=== PATIENT | female | born 1945 | race Caucasian/White ===

== ENCOUNTER → 2016-07-07 | Outpatient (CLI) | payer OTHER ==
[~2016-07-07] MED LIST: BENZ100C84 PO; CETI5TAB5 PO; ESCI10TA17 PO; ESCI1TAB6 PO; FLUT0.15 NAE; HYDR1CAP PO; LPR25 PO; LXP10 PO; METO100T44 PO; NXM/40 PO; PRLSR20 PO; PRVHFAIN INH; RANI150T3 PO; ROSU5TAB PO; SIMV10TA2 PO; ZOLP10TA PO
[2016-07-07 18:21] LABS: URINE APPEARANCE CLEAR (CLEAR); URINE BILIRUBIN NEG (NEG); URINE COLOR YELLOW; URINE EPITHELIAL CELL AUTO 20-30 /lpf (0-5); URINE NITRITE NEG (NEG); URINE PH 5.5 (4.5-7.5); URINE SPECIFIC GRAVITY 1.007 (1.000-1.030); UROBILINOGEN NEG (NEG)
[2016-07-07 18:23] LABS: MANUAL MICROSCOPIC REQUIRED? NO; REVIEW REQ? NO
== END | disposition home or self-care (01) ==
LOC: C.LABSPEC 17:31
PROVIDERS: ATTEND Obstetrics & Gynecology
DX: R32 Unspecified urinary incontinence (principal)

== ENCOUNTER 2016-09-23 07:40 | Day surgery (SDC) | payer OTHER ==
[2016-09-19 12:48] VITALS: BMI 29.0
--- NOTE | 2016-09-22 10:05 | HISTORY & PHYSICAL EXAMINATION ---
DATE OF ADMISSION: 09/23/2016 HISTORY OF PRESENT ILLNESS: A 71-year-old female presents today for preop evaluation of painful in the right foot. Severity of the condition is graded as 7 on a 10-point scale, gradually worsening over time. Pain is described as sore and tender. Onset of condition is unknown. She denies any recent exposure for the condition as gradual changes have happened over time with increasing pain over the joint and over the fourth and fifth digits. She notes the pain significantly increases when walking. Past treatment and tests have included x-rays, debridements, oral medication, rest and strapping insoles with little relief. Due to the nature and severity of the discomfort, she is requesting surgical intervention. PAST SURGICAL HISTORY: Laparoscopy, hip replacement 2013. PAST MEDICAL HISTORY: Hypertension, shingles, gastrointestinal problems, thyroid disorder, arthritic back problems, arthritis. MEDICATIONS: Celebrex, Lexapro, metoprolol, Nexium and Crestor. ALLERGIES: TO HAY FEVER, CATS AND DUST MITES. FAMILY HISTORY: Arthritis. SOCIAL HISTORY: The patient admits to alcohol use, drinking described as social. The patient admits to tobacco use, relates a smoking history of 5-pack years. REVIEW OF SYSTEMS: Unremarkable except chief complaint. PHYSICAL EXAMINATION: VITAL SIGNS: BP 140/90, temperature is 96.4, height 5 feet 4, weight 168 pounds, body mass index 29. HEAD AND FACE: Head is normocephalic and atraumatic without any gross head, face or neck masses. EYES: Conjunctival and pupillary reaction and accommodation normal. EARS, NOSE, MOUTH AND THROAT: Unremarkable. NECK: Neck is supple. Trachea is midline without any adenopathy or crepitance. CARDIOVASCULAR: Normal S1, S2, without murmur, gallops, rubs or clicks noted. Cardiovascular exam is normal. RESPIRATORY: Chest is symmetric. No scars are visible. No port or pacemaker. LUNGS: Clear to auscultation bilaterally, equal. GASTROINTESTINAL: Abdominal organs, bladder and kidneys show no abnormalities, masses, tenderness or rigidity. LYMPHATIC: No popliteal, inguinal, axillary or supraclavicular lymphadenopathy noted. LOWER EXTREMITY VASCULAR: DP palpable, PT palpable. Digital hair is present. DERMATOLOGIC: Inspection of metatarsophalangeal joint, right hallux shows bony prominence and red bursal projection. PIP joint of the right fourth and the distal right fourth interspace show callus formation. NEUROLOGICAL: Touch, pin, vibratory pain, proprioception sensations are normal. Reflexes normal. MUSCULOSKELETAL: Muscle tone is normal. Muscle strength is 5/5 in all groups tested. Inspection and palpation of bones, joints and muscles unremarkable. First metatarsophalangeal joint shows range of motion limited and painful on dorsiflexion, pain lateral right fourth PIP joint and distal medial right fifth DIP joint, proximal interphalangeal joint contracture of the right fourth and fifth digits noted. IMPRESSION: 1. Hallux limitus on the right. 2. Osteoarthritis right first metatarsophalangeal joint. 3. Hammertoes on the right fourth and fifth. 4. Metatarsalgia secondary to lesion on the right. 5. Difficulty walking. 6. Pain lower extremity. PLAN: Discussed mechanical and congenital etiology and possible conservative treatment consisting of extra depth shoes, accommodative padding, palliative debridement, steroid injections, nonsteroidals and orthotics. Due to the nature and severity of discomfort, she is requesting surgical correction. Surgeries to be performed: 1. Cheilectomy right first MTPJ. 2. Total implant arthroplasty right first MTPJ. 3. PIPJ arthroplasty right fourth and fifth with derotational skin plasty right fifth. 4. Exostectomy middle and distal phalanx right fifth. This will be performed under general anesthesia as an outpatient at the hospital. Procedure, risks and complications were fully reviewed with the patient. Consent form and foot diagram and illustration reviewed in all their entirety. All the patient's questions were answered. Complications were discussed in detail with the patient including pain, infection, swelling that may or may not be excessive, pins and needles feeling, numbness, metatarsalgia, excessive bleeding, delay or nonhealing of bone, delay or nonhealing of skin, enlarged scar, failure of the procedure, recurrence or worsening of condition which may or may not require further surgery, adverse reaction to anesthesia, allergic reaction to suture or other implant material, loss of toe, foot, or leg, flail toe, stiff toe, short toe, elevated toe, transfer lesion or callus, peripheral neurovascular complications such as phlebitis, damage to nerves or vascular structures, severe or chronic pain, chronic nerve pain or damage, general medical complications. The patient will be required to be in a surgery shoe for a minimum of 3-6 weeks and not return to dress shoes for 8-12 weeks depending on the postop edema. The patient is aware this is an elective type procedure and I recommend a second opinion. The patient and they understood. Consent form was signed with a copy of the foot diagram issued to the patient. Verbal and written postop instructions were given. The patient will return to the office for postop check or sooner if medically necessary. Instructed to keep dressing clean, dry and intact until seen at the office. At the time of the preoperative appointment, prescriptions for Percocet and Keflex were dispensed. MTDD
[~2016-09-23] VITALS: Ht 162.6 cm; Wt 76.8 kg
[~2016-09-23 07:40] MED LIST changes: +CEFAZOLIN 1000MG/55 ML D5W IV SCH; -ESCI10TA17 PO; -FLUT0.15 NAE; -HYDR1CAP PO; +LACTATED RINGER'S 1000ML 1,000 ML IV SCH; -LPR25 PO; -METO100T44 PO; +METO1TAB69 PO; -PRLSR20 PO; -RANI150T3 PO; -SIMV10TA2 PO; +SODIUM CHLORIDE 0.9% 1000ML 1,000 ML IV SCH; -ZOLP10TA PO
[2016-09-23] MEDS ORDERED: BUPIVACAINE 0.5 % 5 MG/1 ML PF 10ML VIAL ONE (07:53)
[2016-09-23] MEDS ORDERED: BUPIVACAINE 0.25% 30 ML VIAL ONE (07:54)
[2016-09-23] MEDS ORDERED: EpHEDrine SULFATE INJ 50 MG/ML AMP IV PRN (08:00)
[2016-09-23] MEDS ORDERED: FENTANYL CITRATE INJ 50 MCG/1 ML 2 ML VIAL IV PRN (08:00)
[2016-09-23] MEDS ORDERED: ATROPINE SULFATE 0.1 MG/ML 5ML SYR IV PRN (08:00)
[2016-09-23] MEDS ORDERED: ONDANSETRON INJ 2 MG/ML 2 ML VIAL IV PRN (08:00)
[2016-09-23] MEDS ORDERED: HYDROmorphone INJ 1 MG/ML SYR IV PRN (08:00)
[2016-09-23 08:04] VITALS: BP 154/92; PULSE 54; TEMP 36.6; O2SAT 95; Ht 162.6 cm; Wt 76.8 kg
[2016-09-23] MEDS ORDERED: CEFAZOLIN SOD 1000MG/55 ML D5W IV ONE (08:19)
[2016-09-23] MEDS ORDERED: LIDOCAINE HCL 2% 2 ML VIAL (20MG/ML) ONE (09:08)
[2016-09-23] MEDS ORDERED: ONDANSETRON INJ 2 MG/ML 2 ML VIAL ONE (09:08)
[2016-09-23] MEDS ORDERED: MIDAZOLAM HCL 1 MG/ML 2ML VIAL ONE (09:08)
[2016-09-23] MEDS ORDERED: DEXAMETHASONE SOD INJ 4 MG/ML VIAL ONE (09:08)
[2016-09-23] MEDS ORDERED: FENTANYL CITRATE INJ 50 MCG/1 ML 2 ML VIAL ONE (09:08)
[2016-09-23] MEDS ORDERED: PROPOFOL IV EMULSION 10 MG/ML 20 ML VIAL IV ONE (09:08)
[2016-09-23 10:08] LABS: INR 0.9 (0.9-1.1); PARTIAL THROMBOPLASTIN RATIO 1.1
--- NOTE | 2016-09-23 10:37 | History & Physical Bridge Note ---
H&P Re-Evaluation Bridge Note: I have examined the patient, reviewed the History & Physical and in the interval since the performance of the History & Physical I have noted the following changes of clinical significance: No changes noted
[2016-09-23] MEDS ORDERED: BUPIVACAINE 0.5 % 5 MG/1 ML MPF 30ML VIAL ONE (10:38)
[2016-09-23] MEDS ORDERED: SODIUM CHLORIDE 0.9% 1000ML 1,000 ML IV SCH ×3 (10:39)
--- NOTE | 2016-09-23 10:39 | Discharge Instructions ---
Discharge Instructions Date of Service Sep 23, 2016. Visit Reason for Visit: Hammer Toes, Hallux Limitus Discharge Discharge Diagnosis / Problem: same as diagnosis Discharge Goals Goal(s): Decrease discomfort Activity Recommendations Activity Limitations: as noted below Medications: * Resume previous medications unless instructed by your surgeon. * Take your medications as prescribed. Call our office ([phone]) at any time, if you experience severe pain that does not subside shortly after taking your pain medication. Activity: * Do not put any standing weight on your operated foot/ankle. Use the crutches or walker as instructed. Special Care: * Keep your bandage clean and dry. Do not remove your bandage unless otherwise instructed. A small amount of blood may appear on the bandage over the surgical site. Call our office ([phone]) if you bandage becomes blood-soaked or wet. * Elevate your operated foot/ankle on pillows, above the level of your heart, as often as possible during the first 2-3 days following surgery. Keep your knee flexed slightly with a pillow under your knee when you elevate your foot/ankle. * Apply a ice bag to your foot/ankle over the operative site for 20-30 minutes out of each hour while you are awake. Do not allow the ice bag to directly contact bare skin. * Avoid bumping or handling any pins visible in your toes. If any pin feels or appears loose, call the office ([phone]). * Take your oral temperature in the morning and at bedtime. Call our office ([phone]) if your temperature rises above 101 degrees Fahrenheit. Call your surgeon's office at ([phone]) for any problems or concerns such as excessive bleeding and/or pain unrelieved by your prescribed pain medications. If you have any questions, please do not hesitate to ask them. Avoid all tobacco products. If you need help to stop smoking, call [place]'s FREE QUITLINE at . This is a free call. Follow-up: Follow-up with Dr. Tse Anesthesia . Post Anesthesia Instructions: If you have had General Anesthesia or IV Sedation: * Do not drive today. * Resume driving when surgeon permits. * Do not make important decisions or sign legal documents today. * Call surgeon for: 1. Temperature elevations greater than 101 degrees F. 2. Uncontrollable pain. 3. Excessive bleeding. 4. Persistent nausea and vomiting. 5. Medication intolerance (nausea, vomiting or rash). * For nausea and vomiting use only clear liquids such as: tea, soda, bouillon until nausea subsides, then gradually increase diet as tolerated. * If you have any concerns or questions, call your surgeon's office. If physician is unavailable and it is an emergency, call 911 or go to the nearest emergency room. . Diet Recommendations Recommended Home Diet: resume previous diet Pending Studies Studies pending at discharge: no Medical Emergencies . Who to Call and When: Medical Emergencies: If at any time you feel your situation is an emergency, please call 911 immediately. . Non-Emergent Contact Non-Emergency issues call your: Primary Care Provider . . "Provider Documentation" section prepared by Lidia Alberto. .
[2016-09-23] MEDS ORDERED: EpHEDrine SULFATE 50MG/5ML SYR ONE (11:14)
--- NOTE | 2016-09-23 12:57 | DIAGNOSTIC IMAGING REPORT ---
RIGHT FOOT CLINICAL HISTORY: Intraoperative right foot study. FLUOROSCOPY TIME: 37 seconds. FINDINGS: 3 fluoroscopic spot images of the right forefoot. There is an arthroplasty at the first MTP joint. There are pins traversing the fourth and fifth toes. IMPRESSION: Fluoroscopy provided for postoperative changes within the right foot. Electronically signed by: Reyes Goodrich M.D. 09/23/2016 12:55 PM Dictated Date/Time: 09/23/2016 12:54 PM
--- NOTE | 2016-09-23 13:37 | Anesthesiology Progress Note ---
Anesthesia Post Op Note Date & Time Sep 23, 2016 at 13:37 Vital Signs Pain Intensity: 0 Vital Signs Past 12 Hours Date Time Temp Pulse Resp B/P (MAP) Pulse Ox O2 Delivery O2 Flow Rate FiO2 09/23/16 13:25 74 18 151/78 100 Oxymask 10 09/23/16 13:15 73 18 163/94 94 Oxymask 10 09/23/16 13:05 36.6 84 18 164/90 94 Oxymask 10 09/23/16 08:04 36.6 54 20 154/92 (112) 95 Room Air Notes Mental Status: alert / awake / arousable, participated in evaluation Pt Amnestic to Procedure: Yes Nausea / Vomiting: adequately controlled Pain: adequately controlled Airway Patency, RR, SpO2: stable & adequate BP & HR: stable & adequate Hydration State: stable & adequate Anesthetic Complications: no major complications apparent
--- NOTE | 2016-09-23 13:38 | DIAGNOSTIC IMAGING REPORT ---
RIGHT FOOT MIN 3 VIEWS ROUTINE CLINICAL HISTORY: postop Right postoperative evaluation COMPARISON: None. DISCUSSION: Evidence for osteotomies involving the distal aspects of the proximal phalanges of the fourth and fifth toe. Linear pin fixation of the phalanges through the distal aspect of the fourth metatarsal. Apparent pre-existing great toe metatarsal phalangeal joint arthroplasty involving the great toe. Moderate heel spur is present. There are expected postoperative soft tissue changes. Expected soft tissue postoperative change IMPRESSION: 1. Arthroplasties involving the distal aspects of the proximal phalanges of the fourth and fifth toes. 2. Linear pin fixation of the phalanges and distal aspect of the fourth metatarsal 3. Pre-existing joint arthroplasty first metatarsophalangeal joint The above report was generated using voice recognition software. It may contain grammatical, syntax or spelling errors. Electronically signed by: Sai Rios M.D. 09/23/2016 1:36 PM Dictated Date/Time: 09/23/2016 1:34 PM
[2016-09-23 13:50] VITALS: BP 141/64; PULSE 70; TEMP 36.5; O2SAT 92
--- NOTE | 2016-09-23 13:54 | OPERATIVE REPORT ---
DATE OF OPERATION: 09/23/2016 PREOPERATIVE DIAGNOSES: 1. Hallux limitus, right. 2. Osteoarthritis, right first metatarsophalangeal joint. 3. Hammertoes right fourth and fifth. 4. Metatarsalgia. 5. Pain. POSTOPERATIVE DIAGNOSES: Same. PROCEDURES: 1. Cheilectomy with total implant arthroplasty, right first MTPJ. 2. PIPJ arthroplasty, right fourth and fifth. 3. Exostectomy, distal medial phalanx, right fifth. SURGEON: Dr. Tse. ANESTHESIA: General. I attest to the content of the Intraoperative Record and any orders documented therein. Any exception s are noted below.
--- NOTE | 2016-09-23 14:02 | OPERATIVE REPORT ---
DATE OF OPERATION: 09/23/2016 The head of the proximal phalanx was removed from the 4th and 5th digits. Prior to this extensor tendon was transected at the level of the proximal interphalangeal joint. Dissection was carried down to the level of the metatarsal phalangeal joint. Sharp dissection released the metatarsal phalangeal joint with capsulotomy performed of the right 4th and 5th metatarsal phalangeal joint releasing all soft tissues. A 0.045 K-wire was retrograded through the toe back across the metatarsal phalangeal joint in slight plantarflexion. Upon closure it should be noted that the right 5th digital pin was removed as the digit failed to sam up. The pin in the 4th digit remained. The wounds were copiously lavaged with normal saline. Deep structure was closed using 2-0 Vicryl in simple interrupted fashion. Superficial deep structures were closed using 3-0 Vicryl in box stitch technique. Skin margins were closed using 4-0 nylon in running interlocking fashion and simple interrupted fashion over the 4th and 5th digits. There was delayed uptake noted to the right 5th digit. K-wires were removed and upon its removal immediate capillary refill was noted to the 5th digit. A dry sterile compressive dressing consisting of adaptic, 4x4, Phillip and Vitor was applied. The patient was transported to the recovery room with vital signs stable and neurovascular status intact. Prior to transport the final positioning of the implant, K-wire on the 4th and 5th was checked using the fluoroscan. I attest to the content of the Intraoperative Record and any orders documented therein. Any exception s are noted below.
[2016-09-23 14:20] VITALS: BP 141/64; PULSE 78; O2SAT 94
[2016-09-23 14:50] VITALS: BP 141/64; PULSE 77; TEMP 36.4; O2SAT 95
--- NOTE | 2016-09-24 00:08 | OPERATIVE REPORT ---
DATE OF OPERATION: 09/23/2016 CONTINUATION Surgeon: Lidia Tse DPM Preop DX: Hallux Limitus Right Osteoarthritis Right 1st MTPJ Hammertoes Right 4th Right 5th Metatarsalgia Pain Postop Dx: Same Procedure: Capsulotomy with MTPJ Release R 4th & 5th Cheilectomy with total implant arthroplasty Right 1st MTPJ Arthroplasty/PIPJ Right 4th & 5th Exostectomy medial distal phalanx Right 5th Anesthesia: General with regional field block by anesthesiologist Hemostasis: Pneumatic ankle tourniquet 250mmHG for 80 minutes EBL: 73cc MATERIALS: 2-0 and 3-0 Vicryl. 4-0 nylon. K-wire 0.045. Arthroforce toe implant 1.5 x 3.5 with a 1.5 mm poly. FINDINGS: Cartilage down to subchondral bone, 75% of the metatarsal and 20% of the proximal phalanx. COMPLICATIONS: None. The patient tolerated the procedure and anesthesia well without complications, transported to the recovery room with vital signs stable and neurovascular status intact. DESCRIPTION OF PROCEDURE: The patient was brought to the OR and placed on the OR table in supine position. Upon completion of regional field block performed in the preoperative holding area, the foot was scrubbed, prepped and draped in the usual aseptic fashion on the right, well padded. Ankle tourniquet was applied to the right lower extremity. Extremity was scrubbed, prepped and draped in the usual aseptic fashion. Attention was directed to the right first MTPJ where incision was made just medial to tendon extensor hallucis longus. Care was taken to preserve all neurovascular structures. Dissection was carried down to the level of capsular structures. A guidewire was placed in the normal axis so that articular surface centered to the defect. It should be noted that approximately 75% of cartilage surface was derotated down to subchondral bone. This guidepin was placed and checked under fluoro tapered post. Trial implant was placed and remaining bone was measured around to find the ideal implant. Surface reamer was then performed both dorsally and trial implant was placed again and cleaning up bone around the trial implant. At this time, attention was then directed to the proximal phalanx component where a guidewire was placed in the proximal phalanx in the central aspect, this was checked under fluoro. This area was drilled and reamed and implants placed both in the proximal phalanx and metatarsal. The wound was copiously lavaged prior to placement after removal of the trials and final placement. It should be that the trial based on range of motion of the metatarsal component was removed and an additional decompression of the head was performed to increase motion. An additional 2 mm of joint space was decompressed to allow to perform functional motion. The wound was copiously lavaged with normal saline. Trial implants were removed and the final implant was placed. FluoroScan was used to check position. 1.5 mm poly was then snapped into place. The wound was copiously lavaged with normal saline. Attention was then directed to the fourth and fifth digits where a curvilinear incision was made across the metatarsophalangeal joint extending out onto the fourth digit. A diagonal incision was made over the fifth from distal medial to proximal lateral. This was to slightly derotate the toe and also gain access to the distal phalanx. A lia was used to remove a portion of the distal phalanx medially. DICTATION ENDS HERE I attest to the content of the Intraoperative Record and any orders documented therein. Any exceptions are noted below. [facility]
== END 2016-09-23 14:50 | disposition home or self-care (01) ==
LOC: C.ACU 07:40
PROVIDERS: ATTEND Podiatrist Foot & Ankle Surgery
DX: M20.5X1 Other deformities of toe(s) (acquired), right foot (principal); M19.071 Primary osteoarthritis, right ankle and foot; M20.41 Other hammer toe(s) (acquired), right foot; I10 Essential (primary) hypertension

== ENCOUNTER → 2016-11-26 | Outpatient (CLI) | payer OTHER ==
[~2016-11-26] MED LIST changes: -CEFAZOLIN 1000MG/55 ML D5W IV SCH; -LACTATED RINGER'S 1000ML 1,000 ML IV SCH; -SODIUM CHLORIDE 0.9% 1000ML 1,000 ML IV SCH
== END | disposition home or self-care (01) ==
LOC: C.LAB1850 12:52
PROVIDERS: ATTEND Family Medicine
DX: K21.9 Gastro-esophageal reflux disease without esophagitis (principal)

== ENCOUNTER → 2017-01-01 | Outpatient (CLI) | payer OTHER ==
[~2017-01-01] MED LIST changes: +METO100T44 PO; -METO1TAB69 PO
--- NOTE | 2017-01-01 14:54 | MAMMOGRAPHY REPORT ---
BILATERAL DIGITAL SCREENING MAMMOGRAM WITH CAD: 01/01/2017 CLINICAL HISTORY: Routine screening. Patient has no complaints. TECHNIQUE: Current study was also evaluated with a Computer Aided Detection (CAD) system. Bilateral CC and MLO views were obtained. COMPARISON: Comparison is made to exams dated: 01/01/2016 mammogram, 11/01/2013 ultrasound, 11/01/2013 ma mmogram, 11/17/2012 aspiration, 11/05/2012 ultrasound, and 11/05/2012 mammogram - [facility]. BREAST COMPOSITION: There are scattered areas of fibroglandular density in both breasts. FINDINGS: No suspicious masses, calcifications, or areas of architectural distortion are noted in ei ther breast. There has been no significant interval change compared to prior exams. There are stable postsurgical changes from bilateral reduction mammoplasty. IMPRESSION: ACR BI-RADS CATEGORY 2: BENIGN There is no mammographic evidence of malignancy. A 1 year screening mammogram is recommended. The pa tient will receive written notification of the results. Approximately 10% of breast cancers are not detected with mammography. A negative mammographic report should not delay biopsy if a clinically suggestive mass is present. Virginia Kay M.D. /:01/01/2017 12:29:08 Docking Pilot: Rosey MEJIA(Haim)(Xiom[place]), [facility] letter sent: Normal 1/2 BI-RADS Code: ACR BI-RADS Category 2: Benign
== END ==
LOC: C.MAMM 10:16
PROVIDERS: ATTEND Family Medicine
DX: Z12.31 Encounter for screening mammogram for malignant neoplasm of breast (principal)

== ENCOUNTER → 2017-01-12 | Outpatient (CLI) | payer OTHER | END | disposition home or self-care (01) | LOC: C.PAPS 16:38 | PROVIDERS: ATTEND Obstetrics & Gynecology | DX: Z12.4 Encounter for screening for malignant neoplasm of cervix (principal) ==

== ENCOUNTER → 2017-05-04 | Day surgery (SDC) | payer OTHER ==
[2017-04-17 08:54] VITALS: BMI 28.0
[~2017-05-04] VITALS: Ht 160 cm; Wt 71.8 kg
[~2017-05-04] MED LIST changes: +ATROPINE SULFATE 0.1 MG/ML 5ML SYR IV PRN; -BENZ100C84 PO; +CALC1CHW47 PO; -CETI5TAB5 PO; -ESCI1TAB6 PO; +EpHEDrine SULFATE INJ 50 MG/ML AMP IV PRN; +FLUT50SP45 NAE; +HYZ/50125 PO; +LEVO5TAB7 PO; +LIDOCAINE HCL 2% 2 ML VIAL (20MG/ML) ONE; -LXP10 PO; +MAGN250T3 PO; +MULT-1018 PO; +MULT1CHW63 PEG; +PROPOFOL IV EMULSION 10 MG/ML 20 ML VIAL IV ONE; +RANI150T85 PO; +SODIUM CHLORIDE 0.9% 500ML 500 ML IV ONE; +SPIR1TAB PO; +ZOLP10TA PO
--- NOTE | 2017-05-04 11:30 | Endo History and Physical ---
History & Physical Date of Service: May 04, 2017. Chief Complaint: History of colon polyps Referring Physician: Dr. Valencia History of Present Illness 71 yo CF who presents for colonoscopy secondary to history of colon polyps. Past Surgical History Hx Cardiac Surgery: No Hx Internal Defibrillator: No Hx Pacemaker: No Hx Abdominal Surgery: Yes (TUBAL LIGATION, LAPAROTOMY) Hx of Implantable Prosthesis: No Hx Post-Op Nausea and Vomiting: No Hx Cancer Surgery: No Hx Thoracic Surgery: No Hx Orthopedic: Yes (RT JONATHAN, CHIELECTOMY RT 1ST TOE, RT/LEFT CTR) Hx Urinary Tract Surgery: No Family History None Social History Smoking Status: Former Smoker Hx Substance Use: No Hx Alcohol Use: Yes (OCCASIONALLY) Allergies Coded Allergies: Grass (Verified Allergy, Unknown, ENVIRONMENTAL ALLERGY = CONGESTION, 05/04) Lisinopril (Verified Adverse Reaction, Severe, COUGH, 05/04/17) Current Medications Reported Home Medications Medications Dose Route/Sig Max Daily Dose Days Date Category Spirulina 500 Mg Tab 1 Tab PO QAM 04/17/17 Reported Hair Skin and Nails Formu (Multiple Vitamins W/ Minerals) 1 Tab Tab 1 Tab PO QAM 04/17/17 Reported Calcium Gummies (Calcium & Phosphorus W/ Vitami) 1 Chw Chw 2 Dose PO QAM 04/17/17 Reported Airborne Immune System (Multiple Vitamins W/ Minerals) 1 Chw Chw 1 Dose PEG QAM 04/17/17 Reported Magnesium 250 mg (Magnesium) 1 Tab Tab 1 Tab PO QAM 04/17/17 Reported Allergy Nasal [place] 24 Ho (Fluticasone Propionate (Nasal)) 50 Mcg/Act Spr 1 [place] SAVAGE DAILY PRN 04/17/17 Reported Ambien (Zolpidem Tartrate) 10 Mg Tab 10 Mg PO HS PRN 04/17/17 Reported Zantac (Ranitidine HCl) 150 Mg Tab 150 Mg PO DAILY PRN 04/17/17 Reported Hyzaar 12.5MG/50MG (HCTZ/Losartan Potassium) Tab 1 Tab PO HS 04/17/17 Reported Toprol-Xl (Metoprolol Succinate) 100 Mg Tabcr 50 Mg PO HS 04/17/17 Reported Nexium (Esomeprazole Magnesium) 40 Mg Capcr 40 Mg PO BID PRN 04/17/17 Reported Xyzal Allergy 24Hr (Levocetirizine Dihydrochloride) 5 Mg Tab 1 Tab PO HS 04/17/17 Reported Crestor (Rosuvastatin Calcium) 5 Mg Tab 10 Mg PO QPM 09/19/16 Reported Ventolin Hfa (Albuterol) 60 Puffs/5400 Mcg Aers 1 Puff INH Q6H PRN 09/18/16 Reported Vital Signs Weight (Kilograms): 71.82 Height (Feet): 5 Height (Inches): 3 Physical Exam General Appearance: WD/WN, no apparent distress Respiratory/Chest: Auscultation: breath sounds normal Cardiovascular: Heart Auscultation: RRR Abdomen: Bowel Sounds: normal Inspection & Palpation: soft, non-distended, no tenderness, guarding & rebound Assessment and Plan Assessment: 71 yo CF who presents for colonoscopy secondary to history of colon polyps. Plan: Proceed with colonoscopy.
[2017-05-04 11:31] VITALS: Ht 160 cm; Wt 71.8 kg
--- NOTE | 2017-05-04 12:50 | Discharge Instructions ---
Endoscopy Patient Instructions Date / Procedure(s) Performed May 04, 2017. Colonoscopy Allergy Information Coded Allergies: Grass (Verified Allergy, Unknown, ENVIRONMENTAL ALLERGY = CONGESTION, 05/04) Lisinopril (Verified Adverse Reaction, Severe, COUGH, 05/04/17) Discharge Date / Findings May 04, 2017. Colon polyp Diverticulosis Medication Instructions Stopped Medication(s): ALL MEDICATION OK to resume all medications today as prescribed Reported Home Medications Medications Dose Route/Sig Max Daily Dose Days Date Category Spirulina 500 Mg Tab 1 Tab PO QAM 04/17/17 Reported Hair Skin and Nails Formu (Multiple Vitamins W/ Minerals) 1 Tab Tab 1 Tab PO QAM 04/17/17 Reported Calcium Gummies (Calcium & Phosphorus W/ Vitami) 1 Chw Chw 2 Dose PO QAM 04/17/17 Reported Airborne Immune System (Multiple Vitamins W/ Minerals) 1 Chw Chw 1 Dose PEG QAM 04/17/17 Reported Magnesium 250 mg (Magnesium) 1 Tab Tab 1 Tab PO QAM 04/17/17 Reported Allergy Nasal [place] 24 Ho (Fluticasone Propionate (Nasal)) 50 Mcg/Act Spr 1 [place] SAVAGE DAILY PRN 04/17/17 Reported Ambien (Zolpidem Tartrate) 10 Mg Tab 10 Mg PO HS PRN 04/17/17 Reported Zantac (Ranitidine HCl) 150 Mg Tab 150 Mg PO DAILY PRN 04/17/17 Reported Hyzaar 12.5MG/50MG (HCTZ/Losartan Potassium) Tab 1 Tab PO HS 04/17/17 Reported Toprol-Xl (Metoprolol Succinate) 100 Mg Tabcr 50 Mg PO HS 04/17/17 Reported Nexium (Esomeprazole Magnesium) 40 Mg Capcr 40 Mg PO BID PRN 04/17/17 Reported Xyzal Allergy 24Hr (Levocetirizine Dihydrochloride) 5 Mg Tab 1 Tab PO HS 04/17/17 Reported Crestor (Rosuvastatin Calcium) 5 Mg Tab 10 Mg PO QPM 09/19/16 Reported Ventolin Hfa (Albuterol) 60 Puffs/5400 Mcg Aers 1 Puff INH Q6H PRN 09/18/16 Reported Current Inpatient Medications Medications (Trade) Dose Ordered Sig/Evy Route Start Time Stop Time Status Last Admin Dose Admin Sodium Chloride 500 ml @ 15 mls/hr Q24H ONCE IV 05/03/17 22:48 05/04/17 22:47 Ephedrine Sulfate (EpHEDrine SULFATE INJ) 5 mg Q5M PRN IV 05/04/17 12:15 05/05/17 12:14 Atropine Sulfate (Atropine Sulfate 0.1mg/ml Inj) 0.5 mg Q1M PRN IV 05/04/17 12:15 05/05/17 12:14 Provider Instructions Activity Restrictions - No exercising or heavy lifting for 24 hours. - Do not drink alcohol the day of the procedure. - Do not drive a car or operate machinery until the day after the procedure. - Do not make any important decisions or sign important papers in 24 hours after the procedure. Following Day: - Return to full activity which may include returning to work/school. Diet Start your diet with liquids and light foods (jello, soup, juice, toast). Then eat your usual diet if not nauseated. Treatment For Common After Affects For mild abdominal pain, bloating, or excessive gas: - Rest - Eat lightly - Lie on right side Follow-Up Information Follow-up with [facility] as scheduled Anesthesia Information What You Should Know You have had a procedure that required some medicine to reduce anxiety and discomfort. This treatment is called moderate sedation. After receiving the treatment, you may be sleepy, but you will be able to breathe on your own. The effects of the treatment may last for several hours. Follow these instructions along with Activity/Diet recommendations noted above: * Do NOT do anything where dizziness or clumsiness would be dangerous. * Rest quietly at home today, then you can be up and about tomorrow. * Have a responsible person stay with you the rest of today. * You may have had an I.V. today. If so, you may take the dressing off later today. Recommendations Call your doctor if: * Trouble breathing * Continuous vomiting for more than 24 hours * Temperature above 101 degrees * Severe abdominal pain or bloating * Pain not relieved by pain medicine ordered * There is increased drainage or redness from any incision * A large amount of rectal bleeding greater than 2-3 tablespoons. (If you had a polyp/s removed or have hemorrhoids, a small amount of blood - from the rectum is to be expected.) * You have any unanswered questions or concerns. IN THE EVENT OF A SERIOUS EMERGENCY, GO TO THE NEAREST EMERGENCY ROOM Your discharge instructions were prepared by provider Manuel Fong. Patient Instructions Signature Page Gely Francis Patient (or Guardian) Signature/Date: I have read and understand the instructions given to me by my caregivers. Caregiver/RN/Doctor Signature/Date: The above-named patient and/or guardian has received patient instructions on this date. + Original Patient Signature Page (only) stays with chart. Please make copy for patient.
--- NOTE | 2017-05-04 12:55 | GI REPORT ---
Procedure Date: 05/04/2017 12:12 PM Procedure: Colonoscopy Indications: High risk colon cancer surveillance: Personal history of colonic polyps Medicines: Monitored Anesthesia Care Complications: No immediate complications. Estimated Blood Loss: Estimated blood loss: none. Procedure: Pre-Anesthesia Assessment: - Prior to the procedure, a History and Physical was performed, and patient medications and allergies were reviewed. The patient's tolerance of previous anesthesia was also reviewed. The risks and benefits of the procedure and the sedation options and risks were discussed with the patient. All questions were answered, and informed consent was obtained. Prior Anticoagulants: The patient has taken no previous anticoagulant or antiplatelet agents. ASA Grade Assessment: III - A patient with severe systemic disease. After reviewing the risks and benefits, the patient was deemed in satisfactory condition to undergo the procedure. After I obtained informed consent, the scope was passed under direct vision. Throughout the procedure, the patient's blood pressure, pulse, and oxygen saturations were monitored continuously. The scope was introduced through the anus and advanced to the cecum, identified by appendiceal orifice and ileocecal valve. The colonoscopy was performed without difficulty. The patient tolerated the procedure well. The quality of the bowel preparation was good. The ileocecal valve, appendiceal orifice, and rectum were photographed. Findings: The perianal and digital rectal examinations were normal. A 4 mm polyp was found in the descending colon. The polyp was sessile. The polyp was removed with a hot snare. Resection and retrieval were complete. Multiple small-mouthed diverticula were found in the sigmoid colon. Impression: - One 4 mm polyp in the descending colon, removed with a hot snare. Resected and retrieved. - Diverticulosis in the sigmoid colon. Recommendation: - Resume previous diet. - Continue present medications. - Repeat colonoscopy for surveillance based on pathology results. - Return to primary care physician as previously scheduled. Manuel Fong DO 05/04/2017 12:55:02 PM This report has been signed electronically. Note Initiated On: 05/04/2017 12:12 PM I attest to the content of the Intraoperative Record and orders documented therein, exceptions below
--- NOTE | 2017-05-04 13:09 | Anesthesiology Progress Note ---
Anesthesia Post Op Note Date & Time May 04, 2017 at 13:09 Vital Signs Pain Intensity: 0 Vital Signs Past 12 Hours Date Time Temp Pulse Resp B/P (MAP) Pulse Ox O2 Delivery O2 Flow Rate FiO2 05/04/17 12:50 36.0 63 16 94/52 (66) 97 Room Air 05/04/17 11:37 36.6 67 18 120/58 (78) 97 Room Air Notes Mental Status: alert / awake / arousable, participated in evaluation Pt Amnestic to Procedure: Yes Nausea / Vomiting: adequately controlled Pain: adequately controlled Airway Patency, RR, SpO2: stable & adequate BP & HR: stable & adequate Hydration State: stable & adequate Anesthetic Complications: no major complications apparent
[2017-05-04 13:20] VITALS: BP 133/85; PULSE 60; O2SAT 97
== END | disposition home or self-care (01) ==
LOC: C.GI 11:12
PROVIDERS: ATTEND Internal Medicine
DX: Z12.11 Encounter for screening for malignant neoplasm of colon (principal); D12.4 Benign neoplasm of descending colon; K57.30 Diverticulosis of large intestine without perforation or abscess without bleeding; K21.9 Gastro-esophageal reflux disease without esophagitis; J45.909 Unspecified asthma, uncomplicated; Z86.010 Personal history of colon polyps; Z96.641 Presence of right artificial hip joint; Z87.891 Personal history of nicotine dependence

== ENCOUNTER 2025-01-10 05:23 | Observation (INO) ==
--- NOTE | 2024-12-14 11:52 | PAT Medication Instructions ---
Medication Instructions Date of Service December 14, 2024 Home Medications Medication Instructions Recorded albuterol sulfate 90 mcg/actuation 2 puff inhalation Q6H PRN sob #18 02/29/20 aerosol inhaler grams fluticasone propionate 50 2 spray intranasal DAILY #16 grams 02/29/20 mcg/actuation nasal spray,suspension conjugated estrogens 0.625 mg/gram 0.625 mg vaginal 2XWK . #30 grams 06/26/23 vaginal cream (Premarin) rosuvastatin 20 mg tablet 20 mg PO Q2D #90 tabs 05/17/24 losartan 100 1 tab PO QAM #90 tabs 08/04/24 mg-hydrochlorothiazide 25 mg tablet rosuvastatin 10 mg tablet (Crestor) 10 mg PO Q2D #45 tabs 08/09/24 amoxicillin 500 mg tablet 2,000 mg (4 x 500 mg) PO ONCE 10/13/24 pre-dental #4 tabs Medication List: acyclovir 5 % topical cream 1 appln topical 5XD albuterol sulfate 90 mcg/actuation aerosol inhaler 2 puff inhalation Q6H PRN sob fluticasone propionate 50 mcg/actuation nasal spray,suspension 2 spray intranasal DAILY zolpidem 10 mg tablet 5 mg PO HS PRN insomnia mirabegron 25 mg tablet,extended release 24 hr (Myrbetriq) 25 mg PO QAM conjugated estrogens 0.625 mg/gram vaginal cream (Premarin) 0.625 mg vaginal 2XWK esomeprazole magnesium 40 mg capsule,delayed release 40 mg PO HS rosuvastatin 20 mg tablet 20 mg PO Q2D fluoxetine 20 mg capsule 20 mg PO QAM losartan 100 mg-hydrochlorothiazide 25 mg tablet 1 tab PO QAM rosuvastatin 10 mg tablet (Crestor) 10 mg PO Q2D amoxicillin 500 mg tablet 2,000 mg (4 x 500 mg) PO ONCE pre-dental MEDICATION INSTRUCTIONS: Continue as directed amoxicillin 500 mg tablet 2,000 mg (4 x 500 mg) PO ONCE pre-dental conjugated estrogens 0.625 mg/gram vaginal cream (Premarin) 0.625 mg vaginal 2XWK (do not apply after bathing prior to surgery) acyclovir 5 % topical cream 1 appln topical 5XD (do not apply after bathing prior to surgery) albuterol sulfate 90 mcg/actuation aerosol inhaler 2 puff inhalation Q6H PRN sob (use if needed; BRING TO HOSPITAL) fluticasone propionate 50 mcg/actuation nasal spray,suspension 2 spray intranasal DAILY DO NOT take the morning of surgery mirabegron 25 mg tablet,extended release 24 hr (Myrbetriq) 25 mg PO QAM losartan 100 mg-hydrochlorothiazide 25 mg tablet 1 tab PO QAM Take morning of surgery With a small sip of water, OTHERWISE NOTHING TO EAT OR DRINK AFTER MIDNIGHT: rosuvastatin 20 mg tablet 20 mg PO Q2D rosuvastatin 10 mg tablet (Crestor) 10 mg PO Q2D fluoxetine 20 mg capsule 20 mg PO QAM Take evening before surgery zolpidem 10 mg tablet 5 mg PO HS PRN insomnia esomeprazole magnesium 40 mg capsule,delayed release 40 mg PO HS Other Notes If you have any questions please call us at [phone] or [phone] or [phone] or [phone]
--- NOTE | 2024-12-19 09:58 | Anesthesiology Consultation ---
Date of Service December 19, 2024 Assessment & Plan (1) Encounter for pre-operative examination: - Infectious disease screening: Per assessment on 12/19/24- No known recent infectious disease contacts or current infectious disease symptoms. - Outpatient joint assessment: Pt currently scheduled for inpatient pathway. If surgeon requests review for outpatient joint pathway, patient is not a recommended candidate for outpatient joint program from anesthesia standpoint based on available information. - [place] [facility] visit 05/17/24: "79-year-old woman with multiple vascular risk factors but no demonstrated coronary artery disease who is doing well. No evidence of ongoing Myocard ischemia, dysrhythmia, or heart failure. Did encourage her to obtain and use nocturnal oxygen, we reviewed the risk factors of untreated hypoxemia (pulmonary hypertension, dysrhythmias, etc.). Lung exam was unremarkable today (no bronchospasm) and her oxygen saturations were favorable at rest and with modest activity. Vascular risk factors addressed as follows: Losing weight Improving hemoglobin A1c (6.0%) Good blood pressure control LDL not at goal (104), recommended increasing rosuvastatin. She has had trouble with myalgias in the past, so we'll titrate up gradually. She will increase her rosuvastatin from 10 mg daily to 10 mg Q2D alternating with 20 mg Q2D (averaging 15 mg daily). We also discussed adding ezetimibe, however if she can tolerate increased that dose this has more proven mortality benefit. Consider PCSK9 inhibitor, but she may not be a candidate for insurance coverage given absence of proven vascular disease.." Chart Review Chart Review: Acceptable Risk for Surgery and Patient seen in Pre Admission Testing Teaching & Discussion Pre-Anesthesia Teaching/Discussion Notes: Instructed NPO after midnight before surgery,except medications with 15 cc of water. Medication instructions provided according to the PAT guidelines. History Surgery Operation Date: 01/10/25 07:00 Proposed Procedures p Left Total Hip Arthroplasty - Roge Colvin MD Height/Weight Height: 5 ft 3 in Weight: 71.1 kg Allergies Allergy/AdvReac Type Severity Reaction Status Date / Time animal dander Allergy Mild Congestion Verified 12/19/24 08:48 grass pollen-perennial rye, Allergy Mild Environmental Verified 12/19/24 08:48 standar allergy- congestion house dust mite Allergy Mild Congestion Verified 12/19/24 08:48 nickel Allergy Mild Contact Verified 12/19/24 08:48 dermatitis lisinopril AdvReac Intermediate Cough Verified 12/19/24 08:48 oxycodone [From Percocet] AdvReac Mild Nightmare Verified 12/19/24 08:48 Medications Home Medications Medication Instructions Recorded Confirmed Last Taken acyclovir 5 % topical cream 1 appln topical 5XD 10/04/19 12/19/24 01/28/21 albuterol sulfate 90 mcg/actuation 2 puff inhalation Q6H PRN sob #18 02/29/20 12/19/24 Unknown aerosol inhaler grams fluticasone propionate 50 2 spray intranasal DAILY #16 grams 02/29/20 12/19/24 08/20/22 07:00 mcg/actuation nasal spray,suspension zolpidem 10 mg tablet 5 mg PO HS PRN insomnia 08/21/20 12/19/24 08/19/22 mirabegron 25 mg tablet,extended 25 mg PO QAM 01/13/23 12/19/24 Unknown release 24 hr (Myrbetriq) conjugated estrogens 0.625 mg/gram 0.625 mg vaginal 2XWK . #30 grams 06/26/23 12/19/24 Unknown vaginal cream (Premarin) esomeprazole magnesium 40 mg 40 mg PO HS 01/12/24 12/19/24 Unknown capsule,delayed release rosuvastatin 20 mg tablet 20 mg PO Q2D #90 tabs 05/17/24 12/19/24 Unknown fluoxetine 20 mg capsule 20 mg PO QAM 06/14/24 12/19/24 Unknown losartan 100 1 tab PO QAM #90 tabs 08/04/24 12/19/24 Unknown mg-hydrochlorothiazide 25 mg tablet rosuvastatin 10 mg tablet (Crestor) 10 mg PO Q2D #45 tabs 08/09/24 12/19/24 Unknown amoxicillin 500 mg tablet 2,000 mg (4 x 500 mg) PO ONCE 10/13/24 12/19/24 Unknown pre-dental #4 tabs Past Medical History Medical History Asthma Possible Chronic kidney disease Per S records DJD (degenerative joint disease) GERD (gastroesophageal reflux disease) History of cataract R/L HTN (hypertension) Follows with [facility] cardio Hx of Lyme disease Hx Lyme disease, more recent tick bite 11/2024 (prophylactic treatment given) Hyperlipidemia Hypothyroidism Monitored Migraine Nocturnal hypoxemia Given device/recommendation for 2L O2 HS Pt states device was "too large" and is awaiting coordination to obtain smaller/bedside device (not received yet) Prediabetes HGBA1C 08/04/2024: 6.1% Stress incontinence Exercise / Class Metabolic Activity II 4-5 Yardwork/Stairs/Walk up hill (one FS: No CP, no SOB) Past Family History Family History Mother Lymphoma Myocardial infarction Breast cancer Endometriosis Family history of diabetes mellitus Sister Lymphoma Endometriosis Other Coronary heart disease No family history of adverse response to anesthesia Stroke Denies family history of Esophageal cancer Ovarian cancer Prostate cancer Crohn's disease Colorectal cancer Ulcerative colitis Past Surgical History Surgical History H/O carpal tunnel repair R/L H/O colonoscopy with polypectomy 2017 (Adenomatous)2022 History of anesthesia reaction Difficult waking up with tubal ligation (~1987) Elevated BP with colonoscopy in past History of bilateral breast reduction surgery History of colonoscopy History of dilation and curettage History of esophagogastroduodenoscopy (EGD) History of joint replacement Right great toe History of right hip replacement History of sinus surgery History of tubal ligation Past Anesthesia History No Family Hx of Anesthesia Complications and Other (Difficult waking up with tubal ligation (~1987); Elevated BP with colonoscopy in past) History of PONV No Hx of PONV and No Hx of Motion Sickness Social History Smoking Status: Former smoker tobacco type: cigarettes Do You Dip or Chew Tobacco: No Smoking End Date: Quit ~2011 Hx Alcohol Use: Yes Alcohol type: beer and hard liquor alcohol intake frequency: a few times a month Hx Substance Use: No substance use type: does not use Review of Systems Patient denies chest pain, shortness of breath, dyspnea on exertion, fever, chills, cough, wheezing, palpitations. Physical Exam Vital Signs BP 137/84 P 66 TEMP 98.1 SP02 96%RA RESP 16 Physical Full cervical extension range of motion. Full TMJ range of motion. TMD > 3.5 finger breaths Mallampati Score III Dentition: intact, + caps/crowns Lungs: clear throughout to auscultation Cardiac: regular rate and rhythm, no murmurs noted Spine: normal Carotid arteries: negative bruit Extremities: no LE edema Lab Results Anesthesia Preop Results Results Anesthesia Widget: WBC 7.75 K/ul (4.8-10.8) 12/19/24 Hgb 14.4 g/dl (12.0-16.0) 12/19/24 Hct 43.5 % (37.0-47.0) 12/19/24 Plt 359 K/uL (130-400) 12/19/24 Na 140 mmol/L (136-145) 12/19/24 K 4.4 mmol/L (3.5-5.1) 12/19/24 Cl 103 mmol/L (98-107) 12/19/24 CO2 31 mmol/L (21-32) 12/19/24 BUN 17 mg/dl (6-23) 12/19/24 Creat 1.00 mg/dl (0.6-1.2) 12/19/24 Glucose Level 106 mg/dl (70-99(Fasting)) H 12/19/24 PT 10.3 Seconds (9.0-12.0) 12/19/24 PTT 29 Seconds (21-31) 12/19/24 INR 1.0 (0.9-1.1) 12/19/24 Blood Type O Positive 12/19/24 Antibody Screen NEGATIVE 12/19/24 Testing Electrocardiogram Date: 12/19/24 NSR at 70bpm. "Normal ECG" Chest X-Ray Date: 12/19/24 FINDINGS: Heart size and pulmonary vasculature are normal. No consolidation or pleural effusion. Stable hyperexpanded lungs. IMPRESSION: No acute findings. Stress Test Date: 05/11/23 Type: exercise Stress echo negative for myocardial ischemia at 100% MPHR by echocardiographic criteria. Indeterminate ECG portion of exercise treadmill stress test due to baseline ST abnormalities. Mild exercise-induced dyspnea without chest pain. Mildly reduced functional capacity. 6 METS. Mildly accelerated heart rate and appropriate blood pressure response to exercise Rest echo with normal LV size and function, normal LV wall thickness with grade 1 diastolic dysfunction, mild MR, mild LAD. EF 60-65%.
[2025-01-10] MEDS: CeleBREX 200 MG CAP PO SCH (06:14)
[2025-01-10] MEDS: ACETAMINOPHEN 500 MG TAB PO SCH ×2 (06:14→14:22)
[2025-01-10] MEDS: LR 60ML/HR IV SCH (06:14)
[2025-01-10] MEDS: LR 500ML BOLUS, THEN 15ML/HR IV SCH (06:14)
[2025-01-10] MEDS: dexAMETHasone**PF** 10 MG/ML VIAL IV SCH (06:15)
[2025-01-10] MEDS: METOCLOPRAMIDE HCL 10 MG TABLET PO SCH (06:15)
[2025-01-10] MEDS: FAMOTIDINE 20 MG TAB PO SCH (06:15)
[2025-01-10] MEDS ORDERED: BUPIVACAINE 0.5 % 5 MG/1 ML PF 10ML VIAL ONE (06:27)
[2025-01-10] MEDS ORDERED: ONDANSETRON INJ 2 MG/ML 2 ML VIAL ONE (06:39)
[2025-01-10] MEDS ORDERED: MIDAZOLAM HCL 1 MG/ML 2ML VIAL ONE (06:39)
[2025-01-10] MEDS ORDERED: PROPOFOL IV EMULSION 10 MG/ML 20 ML VIAL IV ONE (06:39)
[2025-01-10] MEDS ORDERED: PROPOFOL IV EMULSION 10 MG/ML 100 ML VIAL IV ONE (06:39)
[2025-01-10] MEDS ORDERED: LIDOCAINE 2% 2 ML VIAL/AMP(20MG/ML) INFIL ONE (06:39)
--- NOTE | 2025-01-10 06:45 | History & Physical Bridge Note ---
Date of Service January 10, 2025 History & Physical Bridge Note I have examined the patient, reviewed the History & Physical and in the interval since the performance of the History & Physical I have noted the following changes of clinical significance: no changes noted
[2025-01-10] MEDS: TRANEXAMIC ACID 1,000 MG **IV Pre-op IV SCH (06:50)
[2025-01-10] MEDS ORDERED: ePHEDrine sulfate 50 MG/5 ML SYR ONE (07:26)
[2025-01-10] MEDS: BUPIVACAINE/EPINEPHRINE 0.5% MPF 1:200,000 30 ML VIAL ONE (07:44)
[2025-01-10] MEDS: ORTHO JOINT ANESTHETIC ONE (07:44)
[2025-01-10] MEDS ORDERED: GLUCAGON FOR INJ 1 MG VIAL SQ PRN (08:48)
[2025-01-10] MEDS ORDERED: DEXTROSE 50% 50 ML SYRINGE IV PRN (08:48)
[2025-01-10] MEDS ORDERED: GLUCOSE 10 TAB/TUBE PO PRN (08:48)
[2025-01-10] MEDS ORDERED: GLUCOSE 40% GEL 15 GM TUBE PO PRN (08:48)
[2025-01-10] MEDS ORDERED: CARBOHYDRATES FOR HYPOGLYCEMIA PO PRN (08:48)
--- NOTE | 2025-01-10 08:48 | Operative Report ---
[facility] Post Operative Report Pre & Post Diagnosis Operation Date: 01/10/25 07:00 Pre-Op Diagnosis: Left Hip Osteoarthritis Post-Op Diagnosis: Left Hip Osteoarthritis I identified the patient and participated in the time-out.: Yes Procedure Operation Date: 01/10/25 07:00 Actual Procedures p Left Total Hip Arthroplasty(Left) - Roge Colvin MD Surgeon Roge Colvin MD Cargo Operations Agent Clarence Keyes PA-C Estimated Blood Loss 100 Findings Consistent with Post-Op Diagnosis Specimens Left femoral head sent for pathology. Anesthesia Type Spinal MAC Complications none Disposition Accompanied Patient To Recovery: No Indications Patient is a 79-year-old female who is now about 12 years out from a right hip replacement. The past several years she developed increased pain discomfort left hip described to gotten worse and became more debilitating. X-rays show progressive left hip arthritis. She elected proceed with left total hip arthroplasty. Description of Procedure Operative implants consist of: 1. Biomet G7 size 50 mm acetabular shell. 2. 6.5 cancellous acetabular screws 1 to 35 mm length and 125 mm length. 3. Solo hole stone setter apprentice. 4 highly cross-linked polyethylene liner with a 50 mm outer diameter 36 mm inner diameter. 5. DePuy Karaya I size 9 KLA femoral stem. 6. +5/36 mm ceramic articular ball. The patient was taken to the op room, identified, placed on the operating table in the supine position. All contact areas were appropriately padded. IV antibiotics were provided by the anesthesia team. A spinal anesthetic and adductor canal block had been provided in the holding area. A Galvan catheter was placed in a sterile fashion. The patient was then placed in the right lateral decubitus position. An axillary roll was placed. A stool Birkett position was used for positioning. Left hip and leg were then prepped and draped in usual sterile fashion. A posterior lateral approach to the left hip was then performed to a curvilinear incision centered over the greater trochanter. Sharp dissection was Through subcutaneous tissue down to level the IT band gluteal fascia. The IT band gluteal fascia was then incised longitudinally in line with skin incision. The underlying greater bursa was excised. The piriformis and external rotators along with the posterior hip joint capsule were then released and the posterior aspect of the hip as a single layer. Great care was taken throughout the procedure protect the sciatic nerve at all times. The hip was then internally rotated and dislocated. A femoral neck osteotomy cut was made with Final Cut about 7 mm above the lesser trochanter. The femoral head was removed and sent for pathology. The femur was retracted anteriorly. Attention then drawn the acetabulum. The acetabulum labrum was excised. The Pulvinal fat was excised. Sequential reaming the acetabular was then performed with a size 43 and progressing up to 49. We reamed a little bit with a 50 reamer and then placed a 50 mm Biomet acetabular shell in about 4 degree lateral opening and 20 degrees of anteversion. It was fixed with two 6.5 screws. Fairly large anterior and anterior inferior osteophytes were removed. A trial liner was placed. Attention drawn the femur. The proximal femur was entered with a Geswind cutter followed by canal finder. I then broached begin size 8. We got pretty good fit with an 8. We trialed the hip and the +5 articular ball provide appropriate soft tissue tension and leg lengths. I did eventually broach up to a size 9 in order to get a KLA implanted in. The calcar reamer was then used to smooth me off the calcar. All trial implants were removed. We irrigated the wound extensively. An apex hole stone setter apprentice was placed. Highly cross-linked polyethylene liner was placed. A size 9 KLA femoral stem was impacted in position. A +5/36 mm ceramic articular ball was placed. Hip was located and once again found to be stable. Attention jointer closing. The wound was irrigated coconuts of pulsatile lavage solution. We did inject locally with 60 cc of 5% Marcaine with epinephrine. The posterior capsule and external rotators then repaired to drill holes in the posterior trochanter with #2 Tycron suture. The IT band gluteal fascia then closed in 1 PDS suture running fashion the subcutaneous tissue then closed with 2 layers of the deep layer #1 Vicryl suture in the subcutaneous tissues with 2-0 Dexon suture in a buried interrupted fashion. Skin was then closed with skin yara. Leg was then cleaned and dried and a sterile dressing Kishore Xeroform, 4 fours, ABD pad and Medipore tape were applied. The patient then transferred to the recovery room in stable condition. Patient tolerated procedure well and there were no complications. Clarence Keyes, my physician registrar assistant, was present for the entire procedure. His assistance was essential and required for appropriate patient positioning, prepping and draping, surgical exposure, performing the technical details of the operation, placement the implants, closure of the wound, and placement of the sterile bandage. I attest to the content of the Intraoperative Record and any orders documented therein. Any exceptions are noted below.
[2025-01-10] MEDS ORDERED: ATROPINE SULFATE 0.1 MG/ML 10ML SYR IV PRN (08:55)
--- NOTE | 2025-01-10 09:09 | XRay Report ---
XR hip 1V LT w pelvis CLINICAL HISTORY: IN PACU - Post Surgical COMPARISON: None FINDINGS: Bilateral hip prostheses show no hardware complication. There is expected soft tissue gas on the left. Skin yara are present. IMPRESSION: Unremarkable postoperative exam. ACT 112: Negative or not required by law. Electronically signed by: Bridger Goodwin M.D. 01/10/2025 9:07 AM
--- NOTE | 2025-01-10 09:20 | Anesthesiology Progress Note ---
Date of Service January 10, 2025 Anesthesia Post Procedure Vital Signs Vital Signs: Temp Pulse Pulse Resp BP Pulse Ox O2 Del Method 01/10/25 09:15 79 14 122/69 91 Room Air 01/10/25 09:05 36.4 C L 80 15 122/63 94 Room Air 01/10/25 08:55 79 22 118/60 93 Room Air 01/10/25 08:45 84 18 117/62 91 Room Air 01/10/25 08:35 36.1 C L 88 13 123/69 97 Room Air 01/10/25 05:40 36.7 C 66 20 153/80 H 94 Room Air Transfer of Care Handoff Completed per policy Notes Mental Status: alert / awake / arousable Patient Amnestic to Procedure: Yes Nausea / Vomiting: adequately controlled Pain: adequately controlled Airway Patency, RR, SpO2: stable & adequate BP & HR: stable & adequate Hydration State: stable & adequate Neuraxial Anesthesia: was administered and sensory block is resolving Anesthetic Complications: no major complications apparent
[2025-01-10] MEDS ORDERED: NALOXONE HCL 0.4 MG/1 ML VIAL/CARP IV PRN (10:25)
[2025-01-10] MEDS ORDERED: ALUMINUM/MAGNESIUM SUSP 30 ML UDC PO PRN (10:25)
[2025-01-10] MEDS ORDERED: MAGNESIUM HYDROXIDE SUSP 30 ML UDC PO PRN (10:25)
[2025-01-10] MEDS ORDERED: METOCLOPRAMIDE HCL INJ 5 MG/ML 2 ML VIAL IV PRN (10:25)
[2025-01-10] MEDS ORDERED: ALBUTEROL HFA 8 GM INHALER INH PRN (10:25)
[2025-01-10] MEDS: HYDROmorphone INJ 0.5 MG/0.5 ML SYR IV PRN (10:25)
[2025-01-10] MEDS ORDERED: ONDANSETRON INJ 2 MG/ML 2 ML VIAL IV PRN (10:25)
[2025-01-10] MEDS: KETOROLAC TROMETHAMINE 15 MG/ML VIAL IV SCH (10:47)
[2025-01-10] MEDS: HYDROmorphone INJ 0.5 MG/0.5 ML SYR ONE (10:47)
[2025-01-10] MEDS: KETOROLAC 30 MG/ML VIAL ONE (10:47)
[2025-01-10] MEDS: SENNA 8.6 MG TAB PO SCH (13:10)
[2025-01-10] MEDS: DOCUSATE SODIUM 100 MG CAP PO SCH (13:10)
[2025-01-10] MEDS: SODIUM CHLORIDE 0.9% 1,000 ML IV SCH (13:12)
[2025-01-10] MEDS: ASPIRIN 81 MG ECTAB PO SCH (14:23)
[2025-01-10] MEDS: VIBEGRON 75 MG TAB PO SCH (14:23)
[2025-01-10] MEDS: LOSARTAN/HCTZ 50/12.5MG TAB PO SCH (14:24)
[2025-01-10] MEDS: MULTIVITAMIN TAB PO SCH (14:24)
[2025-01-10] MEDS: FLUTICASONE PROPIONATE NA SPR 16 GM BTL NAE SCH (14:25)
[2025-01-10] MEDS: TRANEXAMIC ACID / 0.7% NACL 1,000 MG/100 ML BAG IV SCH (14:34)
[2025-01-10] MEDS: ASCORBIC ACID 500 MG TAB PO SCH (16:50)
[2025-01-10] MEDS: ZOLPIDEM TARTRATE 5 MG TAB PO PRN (20:09)
[2025-01-10] MEDS ORDERED: SENNA 8.6 MG TAB PO SCH (21:00)
[2025-01-11 07:05] LABS: Hematocrit (blood only) 35.7 % (37.0-47.0); Hemoglobin 11.8 g/dL (12.0-16.0); Immature Granulocytes # (auto) 0.09 K/uL (0.01-0.20); Immature Granulocytes % (auto) 0.5 %; Mean Corpuscular Hemoglobin 28.6 pg (25.0-34.0); Mean Corpuscular Volume 86.4 fL (80.0-100.0); Platelet Count 261 K/uL (130-400); RDW Standard Deviation 39.8 fL (36.4-46.3); Red Blood Count 4.13 M/uL (4.20-5.40); White Blood Count 16.93 K/ul (4.8-10.8)
[2025-01-11 07:10] VITALS: O2SAT 95
[2025-01-11 07:41] LABS: Anion Gap 6.0 (3-11); Blood Urea Nitrogen 22.0 mg/dl (6-23); Calcium 8.7 mg/dl (8.6-10.3); Carbon Dioxide 28.0 mmol/L (21-32); Chloride 105.0 mmol/L (98-107); Creatinine Clr Calc Pharmacy 42.4 ml/min; Glucose 117.0 mg/dl (70-99(Fasting)); Potassium 3.8 mmol/L (3.5-5.1); Sodium 139.0 mmol/L (136-145)
[2025-01-11] MEDS: ROSUVASTATIN CALCIUM 20 MG TAB PO SCH (08:36)
[2025-01-11] MEDS: dexAMETHasone 10 MG in SYRINGE 0 ML IV SCH (08:42)
--- NOTE | 2025-01-11 09:23 | Orthopedic Progress Note ---
Date of Service January 11, 2025 Assessment & Plan (1) S/P total left hip arthroplasty: * Continue Current Treatment * Disposition: home * Daily treatment: Physical Therapy/ Occupational Therapy per protocol * Weight bearing status: WBAT w/ hip precautions * Continue to monitor for ABLA * Pain control * DVT prophylaxis, ASA * Office/hospital f/u 2 weeks for progress check and staple/suture removal * Plan for discharge today pending PT/OT clearance Subjective .Active Problems: S/p L JONATHAN POD 1 79 y/o female s/p left JONATHAN. Doing well overall, pain managed and improved function. Denies fever/chills, chest pain/SOB, nausea/vomiting. Otherwise no complaints. Review of Systems All systems reviewed & are unremarkable except as noted in HPI & below. Physical Exam . * General: Alert and oriented, no acute distress * Constitutional: well-developed, well-nourished. * Respiratory: Normal respiratory effort, no distress * Gastrointestinal: No tenderness to palpation, no rigidity or guarding. * Skin: No rash or lesion. * Neurologic: Grossly normal * Musculoskeletal: Left hip surgical dressing CDI, not removed for exam. Otherwise no obvious deformity or overlying skin changes. Diffuse TTP proximal thigh and hip region. Otherwise no specific tenderness of distal thigh, lower leg, foot/ankle. AROM hip flexion intact. AROM foot/ankle intact. Sensation in tact plantar/dorsal foot. Brisk capillary refill. Results & Data Results & Data Laboratory Results . Diagnostic Findings 01/10 XR L hip FINDINGS: Bilateral hip prostheses show no hardware complication. There is expected soft tissue gas on the left. Skin yara are present. IMPRESSION: Unremarkable postoperative exam. PG Care Time/CCT Total # of Minutes Spent Total Time Spent with Patient: Total time spent is greater than 50% in coordination of care (as documented) at patient's floor/unit and/or counseling patient: Coding Level of Care Code 26827 Post Operative Follow-Up Diagnoses S/P total left hip arthroplasty Z96.642
[2025-01-11 12:12] VITALS: BP 137/75; PULSE 75; RESP 17; TEMP 97.5
[2025-01-12] MEDS ORDERED: ROSUVASTATIN CALCIUM 10 MG TAB PO SCH (09:00)
[2025-01-12] MEDS ORDERED: PREMARIN VAG CRM 14 APPLN/30 GM TUBE PV SCH (09:00)
== END 2025-01-11 13:00 | disposition home health service (06) ==
LOC: PACUINP 05:23 → ASU 05:23 → 3E 12:23